=== PATIENT | female | born 1935 | race Caucasian/White ===

== ENCOUNTER 2018-11-30 10:43 | Emergency (ER) | payer MEDICARE | END 2018-11-30 12:03 | disposition home or self-care (01) | LOC: EDH 10:43 | DX: S06.0X0A Concussion without loss of consciousness, initial encounter (principal); S00.93XA Contusion of unspecified part of head, initial encounter; I10 Essential (primary) hypertension; E78.5 Hyperlipidemia, unspecified; I48.91 Unspecified atrial fibrillation; Z98.890 Other specified postprocedural states; Z95.1 Presence of aortocoronary bypass graft; Z88.1 Allergy status to other antibiotic agents; W18.39XA Other fall on same level, initial encounter; Y93.89 Activity, other specified; Y92.89 Other specified places as the place of occurrence of the external cause; Y99.8 Other external cause status | CPT/HCPCS: 70450 ==

== ENCOUNTER 2018-12-07 10:50 | Observation (INO) | payer MEDICARE ==
[~2018-12-07] VITALS: Ht 149.9 cm; Wt 61.1 kg
[2018-12-07] MEDS ORDERED: NITROGLYCERIN 0.4 MG SL TAB SL ONE (11:06)
[2018-12-07] MEDS ORDERED: OXYMETAZOLINE HCL SPRAY 15 ML BOTTLE ONE (11:07)
[2018-12-07 11:33] LABS: BASOPHILS % (AUTO) 0.7 % (0.0-5.0); EOSINOPHILS % (AUTO) 4.5 % (0.0-8.0); HEMATOCRIT 41.2 % (36-48); LYMPHOCYTES % (AUTO) 24.1 % (21.0-51.0); MEAN CORPUSCULAR HEMOGLOBIN 34.1 pg (27.0-33.0); MEAN CORPUSCULAR HGB CONC 33.7 g/dL (32.0-36.0); MEAN CORPUSCULAR VOLUME 101.2 fL (79-99); MONOCYTES % (AUTO) 9.6 % (3.0-13.0); NEUTROPHILS % (AUTO) 61.1 % (40.0-77.0); NUCLEATED RED BLOOD CELLS 0.1 % (0.0-0.19); PLATELET COUNT (AUTO) 201 K/uL (130-400); RED BLOOD CELL COUNT(AUTO) 4.07 MIL/uL (4.00-5.50); RED CELL DISTRIBUTION WIDTH 14.1 % (11.0-15.5); WHITE BLOOD COUNT (AUTO) 4.4 K/uL (4.8-10.8)
[2018-12-07 11:40] LABS: CREATININE 0.8 mg/dL (0.5-1.5); POTASSIUM 3.6 mmol/L (3.5-5.1)
[2018-12-07 11:44] LABS: ALBUMIN 3.6 g/dL (3.5-5.0); BILIRUBIN,TOTAL 0.6 mg/dL (0.2-1.0); TOTAL PROTEIN, SERUM 7.3 g/dL (6.0-8.3)
[2018-12-07 11:50] LABS: PARTIAL THROMBOPLASTIN TIME 43.4 SEC (26.3-35.5)
[2018-12-07 12:09] LABS: INR 3.86 (0.85-1.15); PROTHROMBIN TIME 39.5 SEC (9.6-11.6)
[2018-12-07] MEDS ORDERED: PHYTONADIONE 10 MG/1 ML AMP ONE (12:37)
[2018-12-07] MEDS ORDERED: CLONIDINE HCL 0.1 MG TABLET ONE ×2 (14:16→15:20)
[2018-12-07] MEDS ORDERED: FAMOTIDINE/PF 20 MG/2 ML VIAL IV ONE (16:16)
[2018-12-07] MEDS ORDERED: SODIUM CHLORIDE 0.9% 10 ML VIAL IVP PRN (17:00)
[2018-12-07] MEDS ORDERED: HYDRALAZINE HCL 20 MG/ML VIAL IV PRN (18:15)
[2018-12-07] MEDS ORDERED: ACETAMINOPHEN 325 MG TAB PO PRN (18:15)
[2018-12-07 19:00] VITALS: BP 200/88
[2018-12-07] MEDS: FAMOTIDINE/PF 20 MG/2 ML VIAL IV SCH (21:39)
[2018-12-07] MEDS: SODIUM CHLORIDE 0.9% 1000ML 1,000 ML IV SCH (21:40)
[2018-12-07] MEDS ORDERED: DIPHENHYDRAMINE HCL 25 MG CAPSULE ONE (22:44)
[2018-12-07] MEDS ORDERED: DIPHENHYDRAMINE HCL 25 MG CAPSULE PO PRN (22:45)
[2018-12-07 23:43] VITALS: BP 138/60
[2018-12-08 04:00] VITALS: BP 158/62
[2018-12-08 05:50] LABS: HEMATOCRIT 36.9 % (36-48); MEAN CORPUSCULAR HGB CONC 33.7 g/dL (32.0-36.0); PLATELET COUNT (AUTO) 216 K/uL (130-400); RED BLOOD CELL COUNT(AUTO) 3.65 MIL/uL (4.00-5.50); RED CELL DISTRIBUTION WIDTH 14.2 % (11.0-15.5); WHITE BLOOD COUNT (AUTO) 4.7 K/uL (4.8-10.8)
[2018-12-08 05:51] LABS: INR 2.32 (0.85-1.15); PARTIAL THROMBOPLASTIN TIME 38.7 SEC (26.3-35.5)
[2018-12-08 05:56] LABS: ALBUMIN 2.7 g/dL (3.5-5.0); BILIRUBIN,TOTAL 0.5 mg/dL (0.2-1.0); CREATININE 0.8 mg/dL (0.5-1.5); POTASSIUM 4.4 mmol/L (3.5-5.1); TOTAL PROTEIN, SERUM 5.8 g/dL (6.0-8.3)
[2018-12-08 06:24] LABS: BAND NEUTROPHILS % (MANUAL) 1 % (0-2); BASOPHILS % (MANUAL) 2 % (0-2); EOSINOPHILS % (MANUAL) 6 % (1-6); LYMPHOCYTES % (MANUAL) 29 % (22-44); MAN.DIFF COMMENT-IMPRESSION MANUAL DIFFERENTIAL; MONOCYTES % (MANUAL) 3 % (2-9); SEGMENTED NEUTROPHILS % 59 % (40-70)
[2018-12-08 06:25] LABS: PLATELET MORPHOLOGY COMMENT ADEQUATE
[2018-12-08 08:00] VITALS: BP 147/75
[2018-12-08] MEDS: SODIUM CHLORIDE 0.9% 1000ML 1,000 ML IV SCH (08:12)
[2018-12-08] MEDS: FAMOTIDINE/PF 20 MG/2 ML VIAL IV SCH (08:12)
[2018-12-08] MEDS ORDERED: WARFARIN SODIUM 2.5 MG TAB PO SCH (11:45)
[2018-12-08 12:00] VITALS: BP 156/59
--- NOTE | 2018-12-08 15:11 | NUR ---
DISCHARGE PATIENT GIVEN DISCHARGE INFORMATION AND EDUCATION ON F/U APPOINTMENT, WARFARIN SIDE EFFECTS, DIET AND INR MONITORING. PATIENT VERBALIZED UNDERSTANDING OF ALL EDUCATION GIVEN VIA TEACH BACK. IV DISCONTINUED, CATHETER INTACT. NO DISTRESS NOTED UPON DISCHARGE, ALL BELONGINGS TAKEN WITH. PATIENT LEFT VIA WHEELCHAIR, FAMILY AND PCP AT SIDE, TO PRIVATE CAR.
== END 2018-12-08 15:10 | disposition home or self-care (01) ==
LOC: EDH 10:50 → EDHIP 15:30 → 3BH 18:57
PROVIDERS: ADMIT Family Medicine; ATTEND Family Medicine
DX: R04.0 Epistaxis (principal); I48.2 Chronic atrial fibrillation; I10 Essential (primary) hypertension; E03.9 Hypothyroidism, unspecified; D68.59 Other primary thrombophilia; E78.5 Hyperlipidemia, unspecified; I16.0 Hypertensive urgency; Z96.652 Presence of left artificial knee joint; Z90.49 Acquired absence of other specified parts of digestive tract; Z98.41 Cataract extraction status, right eye; Z98.42 Cataract extraction status, left eye; Z88.0 Allergy status to penicillin; Z79.01 Long term (current) use of anticoagulants
CPT/HCPCS: 36415 ×2; 80053 ×2; 82550; 84484; 85014; 85018; 85025 ×2; 85610 ×2; 85730 ×2; 93005; 96374; 96375; 96376; 99284; A4510; G0378 ×24; J0360; J3430; J3490 ×3; J7030; Q0163

== ENCOUNTER 2020-09-29 14:23 | Emergency (ER) | payer MEDICARE ==
[2020-09-29 14:40] LABS: BASOPHILS % (AUTO) 0.6 % (0.0-5.0); EOSINOPHILS % (AUTO) 1.6 % (0.0-8.0); HEMATOCRIT 41.9 % (36-48); MEAN CORPUSCULAR HEMOGLOBIN 34.2 pg (27.0-33.0); MEAN CORPUSCULAR HGB CONC 33.4 g/dL (32.0-36.0); MEAN CORPUSCULAR VOLUME 102.4 fL (79-99); MONOCYTES % (AUTO) 8.6 % (3.0-13.0); NEUTROPHILS % (AUTO) 74.9 % (40.0-77.0); PLATELET COUNT (AUTO) 198 K/uL (130-400); RED BLOOD CELL COUNT(AUTO) 4.09 MIL/uL (4.00-5.50); RED CELL DISTRIBUTION WIDTH 12.8 % (11.0-15.5); WHITE BLOOD COUNT (AUTO) 6.8 K/uL (4.8-10.8)
[2020-09-29 14:56] LABS: CREATININE 0.8 mg/dL (0.5-1.5)
[2020-09-29 15:01] LABS: ALBUMIN 3.6 g/dL (3.5-5.0); BILIRUBIN,TOTAL 0.6 mg/dL (0.2-1.0); TOTAL PROTEIN, SERUM 7.2 g/dL (6.0-8.3)
== END 2020-09-29 17:12 | disposition home or self-care (01) ==
LOC: EDH 14:23
DX: S52.531A Colles' fracture of right radius, initial encounter for closed fracture (principal); S00.83XA Contusion of other part of head, initial encounter; E78.5 Hyperlipidemia, unspecified; I10 Essential (primary) hypertension; I48.91 Unspecified atrial fibrillation; Z88.1 Allergy status to other antibiotic agents; Z95.0 Presence of cardiac pacemaker; W18.39XA Other fall on same level, initial encounter; Y93.89 Activity, other specified; Y92.89 Other specified places as the place of occurrence of the external cause; Y99.8 Other external cause status
CPT/HCPCS: 29125; 36415; 70450; 71045; 73110; 80053; 85025; 93005

== ENCOUNTER 2020-10-11 06:38 | Day surgery (SDC) | payer MEDICARE ==
[2020-10-07 12:52] LABS: BASOPHILS % (AUTO) 0.7 % (0.0-5.0); EOSINOPHILS % (AUTO) 2.3 % (0.0-8.0); HEMATOCRIT 40.1 % (36-48); LYMPHOCYTES % (AUTO) 23.3 % (21.0-51.0); MEAN CORPUSCULAR HEMOGLOBIN 33.6 pg (27.0-33.0); MEAN CORPUSCULAR HGB CONC 32.9 g/dL (32.0-36.0); MONOCYTES % (AUTO) 11.2 % (3.0-13.0); NEUTROPHILS % (AUTO) 62.3 % (40.0-77.0); PLATELET COUNT (AUTO) 240 K/uL (130-400); RED BLOOD CELL COUNT(AUTO) 3.93 MIL/uL (4.00-5.50); RED CELL DISTRIBUTION WIDTH 12.5 % (11.0-15.5); WHITE BLOOD COUNT (AUTO) 5.6 K/uL (4.8-10.8)
[2020-10-07 13:04] LABS: CREATININE 0.7 mg/dL (0.5-1.5)
[2020-10-07 13:21] LABS: INR 1.45 (0.85-1.15); PARTIAL THROMBOPLASTIN TIME 35.1 SEC (26.3-35.5); PROTHROMBIN TIME 15.4 SEC (9.6-11.6)
--- NOTE | 2020-10-08 09:11 | NUR ---
REPORT REPORTED PT/INR TO DR VELAZQUEZ. RECEIVED ORDERS IF PT ON BLOOD THINNERS TO NOTIFY HIM AND IF PT NOT ON BLOOD THINNERS THEN REPEAT COAGS ON SUNDAY AM
[2020-10-08 12:26] VITALS: BP 187/80
--- NOTE | 2020-10-08 14:41 | NUR ---
REPORT CALLED DR VELAZQUEZ AND REPORTED PT ON WARFARIN LAST DOSE ON THE . OK AND DO NOT REPEAT COAG LEVELS. OK FOR PT TO TAKE BENADRYL FOR HER ITCHING AM OF SURGERY
[~2020-10-11] VITALS: Ht 154.9 cm; Wt 62.1 kg
[2020-10-11] VITALS (19 sets, daily range): BP systolic 134–193; BP diastolic 54–84
[~2020-10-11 06:38] MED LIST: AMLO2.5T4 PO; CETI10TA57 PO; DIPH25CA85 PO; LEVO75CA5 PO; LIOT5TAB11 PO; LOSA100T58 PO; MONT10TA96 PO; OMEP20CA12 PO; WARF4TAB72 PO; WARF6TAB49 PO
[2020-10-11] MEDS ORDERED: CLINDAMYCIN PHOSPHATE 150 MG/ML 6ML VIAL ONE (07:33)
[2020-10-11] MEDS ORDERED: LACTATED RINGERS 1000ML 1,000 ML IV ONE (07:49)
[2020-10-11] MEDS ORDERED: CLINDAMYCIN 900 MG/D5% WATER 50 ML IV ONE (08:15)
[2020-10-11] MEDS ORDERED: AMLO-257 PO (08:16)
[2020-10-11] MEDS ORDERED: DEXAMETHASONE SOD PHOSPHATE 10MG/ML 1ML VIAL ONE (09:31)
[2020-10-11] MEDS ORDERED: LIDOCAINE PF 2% 5ML ABBOJECT ONE (09:31)
[2020-10-11] MEDS ORDERED: ONDANSETRON HCL 4 MG/2 ML VIAL ONE (09:31)
[2020-10-11] MEDS ORDERED: SUCCINYLCHOLINE CHLORIDE 20 MG/ML 10 ML VIAL ONE (09:31)
[2020-10-11] MEDS ORDERED: GLYCOPYRROLATE 1 MG/5 ML SYRINGE ONE (09:31)
[2020-10-11] MEDS ORDERED: NEOSTIGMINE 5MG/5ML SYR IV ONE (09:32)
[2020-10-11] MEDS ORDERED: ROCURONIUM 10MG/1ML SYR 10 MG/ML ML ONE (09:32)
[2020-10-11] MEDS ORDERED: MIDAZOLAM HCL 1 MG/ML 2ML VIAL ONE (09:32)
[2020-10-11] MEDS ORDERED: PROPOFOL 10 MG/ML 20ML VIAL IV ONE (09:32)
[2020-10-11] MEDS ORDERED: FENTANYL CITRATE PF 50 MCG/1 ML 2ML VIAL ONE ×2 (09:32→11:36)
[2020-10-11] MEDS ORDERED: CLIN300C3 PO (11:43)
[2020-10-11] MEDS ORDERED: ACET1TAB25 PO (11:43)
[2020-10-11] MEDS ORDERED: MEPERIDINE-PF 25 MG/ML SYG ONE (12:10)
--- NOTE | 2020-10-11 12:15 | NUR ---
25mg of Demerol given slow IV push. Cannot document on EMAR system not functioning
[2020-10-11] MEDS ORDERED: KETOROLAC TROMETHAMINE 15MG/ML IV SCH (13:30)
[2020-10-11] MEDS ORDERED: KETOROLAC TROMETHAMINE 60 MG/2 ML VIAL ONE (13:42)
== END 2020-10-11 14:10 | disposition home or self-care (01) ==
LOC: DAH 06:38
PROVIDERS: ATTEND Orthopaedic Surgery
DX: S52.571A Other intraarticular fracture of lower end of right radius, initial encounter for closed fracture (principal); Z20.828 Contact with and (suspected) exposure to other viral communicable diseases; I48.91 Unspecified atrial fibrillation; E03.9 Hypothyroidism, unspecified; I10 Essential (primary) hypertension; M19.90 Unspecified osteoarthritis, unspecified site; Z95.0 Presence of cardiac pacemaker; Z87.891 Personal history of nicotine dependence; Z88.8 Allergy status to other drugs, medicaments and biological substances; Z79.01 Long term (current) use of anticoagulants; Z79.899 Other long term (current) drug therapy; Z79.890 Hormone replacement therapy; W19.XXXA Unspecified fall, initial encounter; Y93.89 Activity, other specified; Y92.89 Other specified places as the place of occurrence of the external cause
CPT/HCPCS: 25608; 36415; 73110; 80048; 85025; 85610; 85730; 93005; A4215; A4221; A4222; A4223; A4565; A4649 ×2; A4663; A4930; A6223; C1713 ×7; C1776; C9803; J0330; J1100; J1885; J2001; J2175; J2250; J2405; J2704; J2710; J3010 ×2; J3490 ×2; J7120 ×2; Q4051; U0003

== ENCOUNTER 2022-08-28 14:12 | Emergency (ER) | payer MEDICARE ==
[~2022-08-28] VITALS: Ht 152.4 cm; Wt 63.5 kg
[~2022-08-28 14:12] MED LIST changes: +ACET-2079 PO; +AMLO-257 PO; -AMLO2.5T4 PO; +CLIN300C3 PO; +MONT-39 PO; -MONT10TA96 PO
[2022-08-28] MEDS ORDERED: ONDANSETRON 4MG INJ IVP ONE (14:30)
[2022-08-28] MEDS ORDERED: ACETAMINOPHEN 500 MG TABLET PO ONE (14:30)
[2022-08-28] MEDS ORDERED: MORPHINE 2 MG SYG IVP ONE (14:30)
[2022-08-28 14:35] LABS: BASOPHILS % (AUTO) 0.3 % (0.0-5.0); EOSINOPHILS % (AUTO) 1.9 % (0.0-8.0); HEMATOCRIT 37.5 % (36-48); LYMPHOCYTES % (AUTO) 15.1 % (21.0-51.0); MEAN CORPUSCULAR HEMOGLOBIN 33.9 pg (27.0-33.0); MEAN CORPUSCULAR HGB CONC 34.1 g/dL (32.0-36.0); MEAN CORPUSCULAR VOLUME 99.2 fL (79-99); MONOCYTES % (AUTO) 12.4 % (3.0-13.0); PLATELET COUNT (AUTO) 194 K/uL (130-400); RED BLOOD CELL COUNT(AUTO) 3.78 MIL/uL (4.00-5.50); RED CELL DISTRIBUTION WIDTH 13.3 % (11.0-15.5); WHITE BLOOD COUNT (AUTO) 7.5 K/uL (4.8-10.8)
[2022-08-28 14:58] LABS: ALBUMIN 3.5 g/dL (3.5-5.0); CREATININE 0.8 mg/dL (0.5-1.5); POTASSIUM 4.1 mmol/L (3.5-5.1); TOTAL PROTEIN, SERUM 7.6 g/dL (6.0-8.3)
[2022-08-28 15:34] LABS: PROTHROMBIN TIME 10.9 SEC (9.6-11.6)
[2022-08-28] MEDS ORDERED: ACET-2079 PO (15:54)
[2022-08-28 16:48] VITALS: BP 132/64
== END 2022-08-28 17:08 | disposition home or self-care (01) ==
LOC: EDH 14:12
DX: S32.019A Unspecified fracture of first lumbar vertebra, initial encounter for closed fracture (principal); E03.9 Hypothyroidism, unspecified; E78.00 Pure hypercholesterolemia, unspecified; I48.91 Unspecified atrial fibrillation; Z88.0 Allergy status to penicillin; W01.0XXA Fall on same level from slipping, tripping and stumbling without subsequent striking against object, initial encounter; Y93.89 Activity, other specified; Y92.89 Other specified places as the place of occurrence of the external cause; Y99.8 Other external cause status
CPT/HCPCS: 99285; 70450; 96374; 71045; 96375; 84484; 80053; 85025; 85610; 36415; 72125; 71250; 74176; 93005; J2405

== ENCOUNTER 2022-09-20 12:28 | Emergency (ER) | payer MEDICARE ==
[~2022-09-20] VITALS: Ht 149.9 cm; Wt 62.6 kg
[2022-09-20 15:32] LABS: BASOPHILS % (AUTO) 0.6 % (0.0-5.0); EOSINOPHILS % (AUTO) 2.2 % (0.0-8.0); LYMPHOCYTES % (AUTO) 25.4 % (21.0-51.0); MEAN CORPUSCULAR HEMOGLOBIN 33.3 pg (27.0-33.0); MEAN CORPUSCULAR HGB CONC 33.2 g/dL (32.0-36.0); MEAN CORPUSCULAR VOLUME 100.3 fL (79-99); MONOCYTES % (AUTO) 9.9 % (3.0-13.0); NEUTROPHILS % (AUTO) 61.6 % (40.0-77.0); PLATELET COUNT (AUTO) 323 K/uL (130-400); RED BLOOD CELL COUNT(AUTO) 3.69 MIL/uL (4.00-5.50); RED CELL DISTRIBUTION WIDTH 13.1 % (11.0-15.5); WHITE BLOOD COUNT (AUTO) 6.8 K/uL (4.8-10.8)
[2022-09-20 15:42] LABS: CREATININE 0.7 mg/dL (0.5-1.5); INR 1.04 (0.85-1.15); POTASSIUM 3.8 mmol/L (3.5-5.1); PROTHROMBIN TIME 11.3 SEC (9.6-11.6)
[2022-09-20 15:43] LABS: PARTIAL THROMBOPLASTIN TIME 31.1 SEC (26.3-35.5)
[2022-09-20 15:50] LABS: ALBUMIN 3.8 g/dL (3.5-5.0); MAGNESIUM 2.1 mg/dL (1.80-2.40); TOTAL PROTEIN, SERUM 8.1 g/dL (6.0-8.3)
[2022-09-20 15:55] LABS: B-TYPE NATRIURETIC PEPTIDE 295 pg/mL (0-100)
[2022-09-20 16:23] LABS: APPEARANCE,URINE CLEAR (CLEAR); BILIRUBIN,URINE NEGATIVE (NEGATIVE); COLOR,URINE YELLOW (YELLOW); GLUCOSE, URINE (UA) NEGATIVE (NEGATIVE); KETONES,URINE NEGATIVE (NEGATIVE); LEUKOCYTE ESTERASE ,URINE NEGATIVE Leu/uL (NEGATIVE); NITRATE,URINE NEGATIVE (NEGATIVE); OCCULT BLOOD,URINE NEGATIVE (NEGATIVE); PH,URINE 6.5 (5.0-8.0); PROTEIN,URINE 10 mg/dL (NEGATIVE); UROBILINOGEN,URINE 0.2 mg/dL (0.2-1.0)
[2022-09-20 16:26] LABS: MUCUS,URINE RARE LPF (None Seen)
[2022-09-20] MEDS ORDERED: IOHEXOL 350 MG/ML 100ML INFUS..BTL IV ONE (17:15)
[2022-09-20 18:05] VITALS: BP 164/67
== END 2022-09-20 18:23 | disposition home or self-care (01) ==
LOC: EDH 12:28
DX: M94.0 Chondrocostal junction syndrome [Tietze] (principal); J84.10 Pulmonary fibrosis, unspecified; I48.91 Unspecified atrial fibrillation; I10 Essential (primary) hypertension; Z88.1 Allergy status to other antibiotic agents; Z88.8 Allergy status to other drugs, medicaments and biological substances; Z79.899 Other long term (current) drug therapy; Z79.01 Long term (current) use of anticoagulants; Z98.890 Other specified postprocedural states
CPT/HCPCS: 99285; 71270; 71046; 80061; 82550; 83735; 83874; 84484; 80053; 83880; 85025; 85378; 85610; 85730; 81001; 36415; 93005; Q9967

== ENCOUNTER 2022-10-21 09:02 | Emergency (ER) | payer MEDICARE ==
[~2022-10-21] VITALS: Ht 149.9 cm; Wt 61.2 kg
[2022-10-21 09:21] LABS: BASOPHILS % (AUTO) 0.7 % (0.0-5.0); EOSINOPHILS % (AUTO) 3.2 % (0.0-8.0); HEMATOCRIT 33.7 % (36-48); LYMPHOCYTES % (AUTO) 15.9 % (21.0-51.0); MEAN CORPUSCULAR HEMOGLOBIN 33.1 pg (27.0-33.0); MEAN CORPUSCULAR HGB CONC 32.6 g/dL (32.0-36.0); MEAN CORPUSCULAR VOLUME 101.5 fL (79-99); MONOCYTES % (AUTO) 13.1 % (3.0-13.0); NEUTROPHILS % (AUTO) 66.7 % (40.0-77.0); PLATELET COUNT (AUTO) 238 K/uL (130-400); RED BLOOD CELL COUNT(AUTO) 3.32 MIL/uL (4.00-5.50); RED CELL DISTRIBUTION WIDTH 13.3 % (11.0-15.5); WHITE BLOOD COUNT (AUTO) 5.7 K/uL (4.8-10.8)
[2022-10-21 09:29] LABS: CREATININE 0.7 mg/dL (0.5-1.5); POTASSIUM 4.5 mmol/L (3.5-5.1)
[2022-10-21 09:34] LABS: ALBUMIN 3.2 g/dL (3.5-5.0); MAGNESIUM 1.9 mg/dL (1.80-2.40); TOTAL PROTEIN, SERUM 6.7 g/dL (6.0-8.3)
[2022-10-21 09:41] LABS: B-TYPE NATRIURETIC PEPTIDE 331 pg/mL (0-100)
[2022-10-21 09:53] LABS: APPEARANCE,URINE CLOUDY (CLEAR); BILIRUBIN,URINE NEGATIVE (NEGATIVE); COLOR,URINE LIGHT-YELLOW (YELLOW); GLUCOSE, URINE (UA) NEGATIVE (NEGATIVE); KETONES,URINE NEGATIVE (NEGATIVE); LEUKOCYTE ESTERASE ,URINE NEGATIVE Leu/uL (NEGATIVE); NITRATE,URINE NEGATIVE (NEGATIVE); OCCULT BLOOD,URINE NEGATIVE (NEGATIVE); PH,URINE 7.5 (5.0-8.0); PROTEIN,URINE NEGATIVE (NEGATIVE); UROBILINOGEN,URINE 0.2 mg/dL (0.2-1.0)
[2022-10-21 10:50] VITALS: BP 168/61
== END 2022-10-21 11:50 | disposition home or self-care (01) ==
LOC: EDH 09:02
DX: M94.0 Chondrocostal junction syndrome [Tietze] (principal); I48.91 Unspecified atrial fibrillation; E78.00 Pure hypercholesterolemia, unspecified; I11.9 Hypertensive heart disease without heart failure; Z79.899 Other long term (current) drug therapy; Z88.8 Allergy status to other drugs, medicaments and biological substances; Z88.0 Allergy status to penicillin
CPT/HCPCS: 36415; 71045; 80053; 81003; 83735; 83880; 84484; 85025; 93005